=== PATIENT | male | born 1945 | race Caucasian/White ===

== ENCOUNTER 2017-08-06 06:48 | Observation (INO) | payer OTHER ==
--- NOTE | 2017-08-06 06:48 | EDPHY ---
H & P Time Seen by Provider: 08/06/17 06:48 HPI/ROS: CHIEF COMPLAINT: Chest pain and dizziness HISTORY OF PRESENT ILLNESS: 72-year-old man has a history of atrial fibrillation and mitral valve insufficiency on warfarin. He has had increasing dyspnea on exertion for the past 2 weeks which culminated in him feeling short of breath just trying to change a light bulb. Normally he mows his own lawn and shovels his own sidewalk. Patient had symptoms starting at 2:30 a.m. today. He was sleeping on the sofa or the couch and when he got up he started to feel very dizzy. He says his brain was "not working "he was off balance but denies vertigo or spinning sensation. No neck pain. This is associated with substernal central chest pain that did not radiate but was a little bit worse with deep breathing. Symptoms were severe and persisted including a 3rd episode at 5:30 a.m. when he tried to get off the couch and so he called EMS. Chest symptoms are associated with shortness of breath on exertion is noted above but without cough or fever. No leg swelling. REVIEW OF SYSTEMS: Eye: no change in vision ENT: no sore throat Cardiac: Patient did have an episode of syncope where he passed out 2 days ago and hit his head, does not remember any other details. Pulmonary: HPI Abdomen: no vomiting, diarrhea, abdominal pain Musculoskeletal: no back pain Skin: no rash Neuro: no headache Constitutional: no fever : no urinary symptoms A comprehensive 10 point review of systems is otherwise negative aside from elements mentioned in the history of present illness. PAST MEDICAL HISTORY: Includes atrial fibrillation and mitral valve regurgitation, hypertension Social history: Lives independently, nonsmoker General Appearance: Alert and conversant, cooperative. Eyes: No scleral icterus. ENT, Mouth: Normal mucous membranes. 2.5 cm abrasion to the vertex of the scalp. Respiratory: Normal respiratory effort, breath sounds equal, lungs are clear to auscultation. Cardiovascular: Irregular rate and rhythm, 1/6 murmur. Gastrointestinal: Abdomen is soft and non tender. Neurological: Alert and oriented x3. Normally conversant. Face symmetric, normal movement and sensation in all extremities. Skin: Warm and dry, no rashes. Musculoskeletal: No peripheral edema and no joint swelling. No calf tenderness. Psychiatric: Not agitated. Emergency Department course/MDM: Concern for worsening cardiac function with atrial fibrillation and rapid ventricular response to greater than 100, dyspnea on exertion, and syncope 2 days ago. Dizziness today with recent head trauma on Coumadin. EKG, labs to include protime and troponin, noncontrast head CT, chest x-ray for chest pain. 740: INR 3.21 makes pulmonary embolism unlikely. Troponin slightly elevated at 0.049. Plan for IV diltiazem for rate control, admission for cardiology consultation, further evaluation of chest pain and dizziness. Results discussed with the patient. 802: Noncontrast head CT personally interpreted as negative for hemorrhage, admit to hospitalist service. 807: Kylie for Dr. Cramer. Constitutional: Initial Vital Signs Temperature (C) 37.3 C 08/06/17 06:51 Heart Rate 120 H 08/06/17 06:51 Respiratory Rate 18 08/06/17 06:51 Blood Pressure 140/79 H 08/06/17 06:51 O2 Sat (%) 96 08/06/17 06:51 Allergies/Adverse Reactions: lisinopril Allergy (Verified 01/22/15 10:05) Home Medications: Medication Instructions Recorded Calcium Carbonate/Vitamin D3 1 each PO DAILY 08/06/17 [CALCIUM 600 + VIT D TABLET] Cholecalciferol Vit D3 [Vitamin D3 1,000 units PO DAILY 08/06/17 (*)] Cyanocobalamin [Vitamin B12 (*)] 1,000 mcg PO DAILY 08/06/17 Digoxin [Lanoxin 125 mcg (RX)] 125 mcg PO DAILY 08/06/17 Diltiazem HCl [Cartia Xt] 300 mg PO DAILY 08/06/17 Losartan Potassium [Cozaar 50 mg 50 mg PO DAILY 08/06/17 (*)] Multivitamins [Multivitamin (*)] 1 each PO DAILY 08/06/17 Simvastatin [Zocor] 40 mg PO DAILY 08/06/17 Tamsulosin HCl [Flomax 0.4 MG (*)] 0.4 mg PO DAILY 08/06/17 Vitamin B Complex [B Complex] 1 each PO DAILY 08/06/17 Warfarin Sodium [Coumadin 2MG (*)] 2 mg PO DAILY 08/06/17 Medical Decision Making - Diagnostics EKG Interpretation: 12-lead EKG interpreted by me; official reading is in trace master. My interpretation is atrial fibrillation, left axis, no acute ischemic changes. Differential Diagnosis: Differential diagnosis considered for chest pain including but not limited to myocardial ischemia, aortic dissection, pericarditis, pulmonary embolus, chest wall pain, pleural inflammation and pulmonary infectious causes. - Data Points Laboratory Results: Laboratory Results 08/06/17 07:00 08/06/17 07:00 08/06/17 08/06/17 08/06/17 07:00 07:00 07:00 WBC 8.60 10^3/uL 10^3/uL (3.80-9.50) RBC 3.29 10^6/uL L 10^6/uL (4.40-6.38) Hgb 11.8 g/dL L g/dL (13.7-17.5) Hct 33.0 % L % (40.0-51.0) MCV 100.3 fL H fL (81.5-99.8) MCH 35.9 pg H pg (27.9-34.1) MCHC 35.8 g/dL g/dL (32.4-36.7) RDW 12.5 % % (11.5-15.2) Plt Count 98 10^3/uL L 10^3/uL (150-400) MPV 10.7 fL fL (8.7-11.7) Neut % (Auto) 84.1 % H % (39.3-74.2) Lymph % (Auto) 7.6 % L % (15.0-45.0) Dundy % (Auto) 7.3 % % (4.5-13.0) Eos % (Auto) 0.1 % L % (0.6-7.6) Baso % (Auto) 0.3 % % (0.3-1.7) Nucleat RBC Rel Count 0.0 % % (0.0-0.2) Absolute Neuts (auto) 7.23 10^3/uL H 10^3/uL (1.70-6.50) Absolute Lymphs (auto) 0.65 10^3/uL L 10^3/uL (1.00-3.00) Absolute Monos (auto) 0.63 10^3/uL 10^3/uL (0.30-0.80) Absolute Eos (auto) 0.01 10^3/uL L 10^3/uL (0.03-0.40) Absolute Basos (auto) 0.03 10^3/uL 10^3/uL (0.02-0.10) Absolute Nucleated RBC 0.00 10^3/uL 10^3/uL (0-0.01) Immature Gran % 0.6 % % (0.0-1.1) Immature Gran # 0.05 10^3/uL 10^3/uL (0.00-0.10) PT 33.3 SEC H SEC (12.0-15.0) INR 3.21 H (0.83-1.16) Sodium 141 mEq/L mEq/L (134-144) Potassium 3.5 mEq/L mEq/L (3.5-5.2) Chloride 100 mEq/L mEq/L (97-110) Carbon Dioxide 24 mEq/l mEq/l (22-31) Anion Gap 17 mEq/L H mEq/L (8-16) BUN 9 mg/dL mg/dL (7-23) Creatinine 0.9 mg/dL mg/dL (0.7-1.3) Estimated GFR > 60 Glucose 99 mg/dL mg/dL (70-100) Calcium 9.4 mg/dL mg/dL (8.5-10.4) Troponin I 0.049 ng/mL H ng/mL (0.000-0.034) Departure - Departure Disposition: [facility] Acute Clinical Impression: Chest pain Qualifiers: Chest pain type: unspecified Qualified Code(s): R07.9 - Chest pain, unspecified Atrial fibrillation Qualifiers: Atrial fibrillation type: unspecified Qualified Code(s): I48.91 - Unspecified atrial fibrillation Condition: Good Referrals: Rylan Zhang MD [Primary Care Provider] - As per Instructions
--- NOTE | 2017-08-06 07:01 | CPEKG ---
Heart Rate: 110 RR Interval: 545 QRSD Interval: 70 QT Interval: 356 QTC Interval: 482 QRS Overton: -40 T Wave Overton: 69 EKG Severity - ABNORMAL ECG - EKG Impression: ATRIAL FIBRILLATION EKG Impression: PAIRED VENTRICULAR PREMATURE COMPLEXES EKG Impression: LEFT AXIS DEVIATION EKG Impression: BORDERLINE T ABNORMALITIES, ANT-LAT LEADS EKG Impression: BORDERLINE PROLONGED QT INTERVAL Electronically Signed By: Dyllan Hennessy 06-Aug-2017 07:15:44
[2017-08-06 07:10] LABS: % IMMATURE GRANULYOCYTES 0.6 % (0.0-1.1); ABSOLUTE IMMATURE GRANULOCYTES 0.05 10^3/uL (0.00-0.10); ADD DIFF? NO; ADD MORPH? NO; ADD SCAN? NO; ATYPICAL LYMPHOCYTE FLAG 0 (0-99); FRAGMENT RBC FLAG 0 (0-99); HEMOGLOBIN 11.8 g/dL (13.7-17.5); LEFT SHIFT FLG 0 (0-99); LIPEMIA HEMOLYSIS FLAG 90 (0-99); MEAN CELL HEMOGLOBIN 35.9 pg (27.9-34.1); MEAN CELL HEMOGLOBIN CONCENTR. 35.8 g/dL (32.4-36.7); MEAN CELL VOLUME 100.3 fL (81.5-99.8); MEAN PLATELET VOLUME 10.7 fL (8.7-11.7); PLATELET CLUMPS FLAG 0 (0-99); PLATELET COUNT 98 10^3/uL (150-400); RED BLOOD CELL COUNT 3.29 10^6/uL (4.40-6.38); RED CELL DISTRIBUTION WIDTH 12.5 % (11.5-15.2)
[2017-08-06 07:20] LABS: ANION GAP 17 mEq/L (8-16); CALCIUM 9.4 mg/dL (8.5-10.4); CARBON DIOXIDE 24 mEq/l (22-31); CHLORIDE 100 mEq/L (97-110); CREATININE 0.9 mg/dL (0.7-1.3); GLOMERULAR FILTRATION RATE > 60; GLUCOSE 99 mg/dL (70-100); POTASSIUM 3.5 mEq/L (3.5-5.2); SODIUM 141 mEq/L (134-144)
[2017-08-06 07:26] LABS: INR 3.21 (0.83-1.16); PROTIME(PATIENT) 33.3 SEC (12.0-15.0)
[2017-08-06 07:31] LABS: TROPONIN I 0.049 ng/mL (0.000-0.034)
[2017-08-06] MEDS ORDERED: DILTIAZEM 125 MG in D5W 125 ML IV ONE (07:40)
[2017-08-06] MEDS ORDERED: VITAMIN B COMPLEX 1 EA CAP/TAB PO SCH (10:00)
[2017-08-06] MEDS: MULTIVITAMINS 1 EACH TAB PO SCH (11:47)
[2017-08-06] MEDS: VITAMIN B COMPLEX 1 EA CAP/TAB PO SCH (11:47)
[2017-08-06] MEDS: TAMSULOSIN HCL 0.4 MG CAP PO SCH (11:47)
--- NOTE | 2017-08-06 14:54 | PDGENHP ---
History and Physical History and Physical: CC: Orthostatic lightheadedness HISTORY: This patient comes into the ER today with complaint of orthostatic lightheadedness that started at approximately 2:30 a.m. this morning and has persisted. He has no vertigo, no headache, no neurologic symptoms or visual symptoms no nausea. There has been no fever, no vomiting or diarrhea bleeding or other fluid losses. He has no other symptoms of any other acute illness at this time. Notably he tells me that he has had nothing to eat for approximately a day and half. As I asked him about that he says he did not eat anything at all yesterday and that he typically only eats 1 meal a day which is in a particularly large meal and he occasionally will just have a day where he eats no meal at all. He did an EEG yet today because of the orthostatic symptoms in him coming into the ER. There has been no abdominal pain, no blood in his stools or melena, no weight loss, no fever symptoms. This is simply E per his description a chronic eating pattern that he has and he does not view having gone this long without eating anything unusual or unexpected. Note the patient does drink alcohol, he says he does not drink any hard liquor but he drinks gin and tonic. When I asked him how much he says generally speaking 2 drinks a day but it sounds like this is probably a larger drink than the 1 shot per drink. The patient does have a history of atrial fibrillation and in fact upon arrival to the ER today was in a rapid atrial fibrillation. He is chronically on diltiazem and digoxin for that. The patient apparently had a recent echocardiogram with Dr. Ferraro but does not know the results of that yet ROS: A comprehensive 10 system review revealed no other significant findings. The patient states he did have a colonoscopy just recently and this was normal. PAST MEDICAL HISTORY: Atrial fibrillation Hypertension Mitral valve regurgitation Alcohol abuse Aortic aneurysm 4.6 cm on last echo Tonsillectomy FAMILY MEDICAL HISTORY: Stroke SOCIAL HISTORY: Quit smoking in the 1960s Drinks gin and tonic stating 2 drinks per day volume per drink uncertain MEDICATIONS: The patients list has been reconciled by our clinical pharmacist in the EMR. I have reviewed the list and ordered appropriate medicines. 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 Examination: General: alert, oriented, good mentation, relaxed Skin: warm, dry, good color, no rash HEENT: normal Neck: no mass or jvd Resps: relaxed Lungs: clear breath sounds Heart: regular, no murmur Abdomen: soft, nondistended, nontender, +BS, no mass Upper Extremities: normal Lower Extremities: no edema, warm No Bleeding or bruising Neurologic: normal speech/language, normal table filler, no focal weakness IV site: looks normal LABORATORY DATA: Mild macrocytic anemia Indeterminate troponin 0.04 INR 3 RADIOLOGY STUDIES: Chest x-ray done in the ER, my review of image: No congestive heart failure, pneumonia, effusions, or enlargement of cardiac silhouette A CT was also done in the ER with no contrast, my review of images: No hemorrhage, mass effect, or any other acute abnormalities 12 LEAD EKG: Rapid atrial fibrillation ASSESSMENT: -orthostatic hypotension, symptomatic. I think this is probably most likely a combination of poor intake of food and fluids over the last day and half as well as his antihypertensive medicine. At this time I do not see evidence of infection, aside from some rapid atrial fibrillation that is now controlled without as doing anything specific I do not see any signs of an acute cardiac event. He does not present with specific symptoms right now to suggest a PE and is on chronic anticoagulation. There is no evidence of bleeding and is not particularly anemic in a way that would cause these symptoms. -rapid atrial fibrillation in a patient with chronic permanent atrial fibrillation, rate control is now good without any new treatment and he is anticoagulated -inadequate oral intake over the last 36 hours with what is not really very healthy eating pattern in general. I wonder actually if it may be that his alcohol use has some effect on his diet intake or if there are other particular issues. He is and lives alone and I wonder if he might have depression though he does not feel that he has that right now -recent echocardiogram with unknown result, this was a routine follow-up study PLANS: IV hydration Recheck orthostatic vital signs Observe overnight in the hospital with most likely discharge tomorrow Cardiac monitoring Continue his current cardiac medicines at this time For trying get results of his recent echocardiogram I have reviewed the patient's case in detail with . I have reviewed the patient's past medical records as part of this assessment, including
[2017-08-06] MEDS ORDERED: NS 500 ML IV ONE (16:21)
[2017-08-06] MEDS ORDERED: NS 1,000 ML IV SCH (16:30)
[2017-08-07 03:30] VITALS: O2SAT 94
[2017-08-07 04:58] LABS: INR 2.3 (0.83-1.16); PROTIME(PATIENT) 25.5 SEC (12.0-15.0)
[2017-08-07 05:06] LABS: ANION GAP 12 mEq/L (8-16); CALCIUM 8.4 mg/dL (8.5-10.4); CARBON DIOXIDE 24 mEq/l (22-31); CHLORIDE 104 mEq/L (97-110); CREATININE 0.8 mg/dL (0.7-1.3); GLOMERULAR FILTRATION RATE > 60; GLUCOSE 83 mg/dL (70-100); MAGNESIUM 1.1 mg/dL (1.6-2.3); POTASSIUM 3.3 mEq/L (3.5-5.2); SODIUM 140 mEq/L (134-144)
[2017-08-07 07:37] VITALS: RESP 14; TEMP 99
[2017-08-07] MEDS: VITAMIN B COMPLEX 1 EA CAP/TAB PO SCH (08:47)
[2017-08-07] MEDS: TAMSULOSIN HCL 0.4 MG CAP PO SCH (08:47)
[2017-08-07] MEDS: MULTIVITAMINS 1 EACH TAB PO SCH (08:47)
[2017-08-07] MEDS ORDERED: DIGOXIN 125 MCG TAB PO SCH (09:00)
[2017-08-07] MEDS ORDERED: DILTIAZEM CD 300 MG CAP PO SCH (09:00)
[2017-08-07] MEDS ORDERED: LOSARTAN POTASSIUM 50 MG TAB PO SCH (09:00)
[2017-08-07] MEDS ORDERED: WARFARIN SODIUM 2 MG TAB PO SCH ×2 (09:00→16:00)
[2017-08-07] MEDS ORDERED: NON-FORMULARY NEW DRUG (Simvastatin [Zocor] 40 MG) PO SCH (09:00)
[2017-08-07] MEDS ORDERED: ATORVASTATIN CALCIUM 20 MG TAB PO SCH (09:00)
[2017-08-07] MEDS ORDERED: NS 500 ML IV ONE (09:09)
[2017-08-07 10:04] VITALS: BP 109/71; PULSE 109
--- NOTE | 2017-08-07 10:24 | ASMTCMCOM ---
CM Note CM Note Notes: 08/07/2017 Case Management Note Met w/pt. Pt agreeable to home RN visits to assess vitals and nutritional status. After discussion of multiple agencies, pt chose [facility]. Contacted [facility], able to accept pt. Case management d/c poc: Home with [facility] RN visits when medically stable. Date Signed: 08/07/2017 10:23 AM Electronically Signed By:Parul Jacinto RN
--- NOTE | 2017-08-07 10:50 | PDDCSUM ---
Discharge Summary Discharge Summary: DISCHARGE DIAGNOSES: -acute orthostatic hypotension and presyncope -atrial fibrillation, permanent, with rapid ventricular response -probable chronic orthostatic hypotension, multifactorial -mitral valve regurgitation chronic -alcohol abuse HOSPITAL COURSE SUMMARY: This patient with chronic heart disease including mitral regurgitation and ventricular disease came in with significant symptomatic orthostatic hypotension. He had not been eating or drinking well at home. There was no fever, no fluid losses, no evidence of infection and no evidence of ischemic heart disease. He was having rapid atrial fibrillation although his heart rate fluctuated quite a bit during his observation here. He has known with biatrial enlargement. The patient was observed overnight and hydrated with intravenous fluids. This did improve his symptoms quite a bit though he remained orthostatic and continues to have intermittent tachycardia from his atrial fibrillation at rest. There is no evidence of heart failure. On discussion with the patient he is being evaluated by Dr. Ferraro for possible percutaneous mitral valve repair. It may be that the patient will also need to be considered for an AFib ablation due to his ongoing orthostasis and poorly controlled AFib rate. This may or may not be successful given his biatrial enlargement. However he may not tolerate any additional rate control medication due to orthostasis. It is possible that a valve repair would improve the orthostasis and make better medicinal rate control tolerated. I reviewed this with Dr. Ferraro today. Patient will be discharged home and follow up with Dr. Ferraro later this week. PENDING TEST RESULTS: None MEDICATION CHANGES: None FOLLOW-UP PLAN: With Dr. Ferraro later this week.
--- NOTE | 2017-08-07 13:59 | ASDISCHSUM ---
Discharge Information Plan Status:Home with Home Health Medically Cleared to Leave:08/07/2017 Discharge Date:08/07/2017 01:15 PM CM D/C Disposition:Home, Routine, Self-Care ADT D/C Disposition:Home, Routine, Self-Care Projected Discharge Date:08/07/2017 11:00 AM Transportation at D/C:Friend Discharge Delay Reason: Follow-Up Date:08/07/2017 11:00 AM Discharge Slot: Final Diagnosis: Placement Information Referral Type:*Home Health Care Services Referral ID:[id number] Provider Name:[facility] Address 1:[address] Address 2: City:[place] Selection Factors: State:[place] Patient Contact Information Contact Name:BRENNAN Relationship:Son Address: Work Phone: [facility] Phone: [facility]/Zip Code:[place] Email: Financial Information Financial Class:Medicare Advantage Plans Primary Plan Desc:[facility] ADVANTAGE PLAN Primary Plan Number:[id number] Secondary Plan Desc: Secondary Plan Number: Assessment Information BC CM Progress Note CM Note CM Note Notes: 08/07/2017 Case Management Note Met w/pt. Pt agreeable to home RN visits to assess vitals and nutritional status. After discussion of multiple agencies, pt chose [facility]. Contacted [facility], able to accept pt. Case management d/c poc: Home with [facility] RN visits when medically stable. Date Signed: 08/07/2017 10:23 AM Electronically Signed By:Parul Jacinto RN Intervention Information Intervention Type:*IM-Signed Date of Service:08/07/2017 09:24 AM Patient Type:Observation Staff Member:Beatriz Kang Hours: Discipline: Severity: Comment:
--- NOTE | 2017-08-08 18:18 | PDIAF ---
- Diagnosis Diagnosis: orthostatic hypotension, rapid a fib - Medication Management Discharge Medications: Medications to Continue on Transfer Calcium Carbonate/Vitamin D3 [CALCIUM 600 + VIT D TABLET] 1 each PO DAILY [Last Taken Unknown] Cholecalciferol Vit D3 [Vitamin D3 (*)] 1,000 units PO DAILY 08/06/17 [Last Taken Unknown] Cyanocobalamin [Vitamin B12 (*)] 1,000 mcg PO DAILY 08/06/17 [Last Taken Unknown ] Digoxin [Lanoxin 125 mcg (RX)] 125 mcg PO DAILY 08/06/17 [Last Taken 08/06/17] Diltiazem HCl [Cartia Xt] 300 mg PO DAILY 08/06/17 [Last Taken 08/06/17] Losartan Potassium [Cozaar 50 mg (*)] 50 mg PO DAILY 08/06/17 [Last Taken ] Multivitamins [Multivitamin (*)] 1 each PO DAILY 08/06/17 [Last Taken Unknown] Simvastatin [Zocor] 40 mg PO DAILY 08/06/17 [Last Taken 08/06/17] Tamsulosin HCl [Flomax 0.4 MG (*)] 0.4 mg PO DAILY 08/06/17 [Last Taken 08/05/17 ] Vitamin B Complex [B Complex] 1 each PO DAILY 08/06/17 [Last Taken Unknown] Warfarin Sodium [Coumadin 2MG (*)] 2 mg PO DAILY 08/06/17 [Last Taken 08/06/17] Discharge Medications: Refer to the Discharge Home Medication list for PRN reason. - Orders Services needed: Home Care, Registered Nurse, Physical Therapy Home Care Face to Face: I certify that this patient was under my care and that I had the required [id number] encounter meeting the encounter requirements on the discharge day. My findings support the fact that the patient is homebound as defined in Home Care Face to Face Continued: CMS Chapter 7 Medicare Benefits Manual 30.1.1 , The condition of the patient is such that there exists a normal inability to leave home and consequently, leaving home would require a considerable and taxing effort. Diet Recommendation: no restrictions on diet Diet Texture: Regular Texture Diet - Follow Up Care Current Providers and Referrals: Rylan Zhang MD [Primary Care Provider] - As per Instructions Richard Ferraro MD [Medical Doctor] - (Follow up later this week)
== END 2017-08-07 13:15 | disposition home health service (06) ==
LOC: EDUNIT# → F2W 09:15
PROVIDERS: ADMIT Internal Medicine; ATTEND Internal Medicine
DX: I95.1 Orthostatic hypotension (principal); R55 Syncope and collapse; I48.2 Chronic atrial fibrillation; I34.0 Nonrheumatic mitral (valve) insufficiency; F10.10 Alcohol abuse, uncomplicated; I71.2 Thoracic aortic aneurysm, without rupture; Z79.01 Long term (current) use of anticoagulants; Z87.891 Personal history of nicotine dependence; Z82.3 Family history of stroke
CPT/HCPCS: 70450; 71020; 93005; 97116; 97161; 97165; G0378; G8978; G8979; G8987; G8988; G8989